=== PATIENT | male | born 1955 | race Caucasian/White ===

== ENCOUNTER 2017-09-20 12:51 | Emergency (ER) | payer SELFPAY ==
[2017-09-20] MEDS ORDERED: DIPH/PERTUSS(ACELL)/TETANUS VAC/PF 0.5 ML SYR (>=10YO) IM ONE (13:44)
--- NOTE | 2017-09-20 13:57 | ER Document Report ---
ED Extremity Problem, Lower - General Chief Complaint: Leg Pain Stated Complaint: LEG PAIN Time Seen by Provider: 09/20/17 13:37 Mode of Arrival: Ambulatory Information source: Patient TRAVEL OUTSIDE OF THE [place] IN LAST 30 DAYS: No - HPI Patient complains to provider of: Injury Location: Leg Notes: Patient is here with complaints of right upper mckeon pain. He states that he was stepping over a tall curb when his foot slipped and he banged the proximal aspect of his right tib-fib on the edge of the curb. This happened 1 week ago. He continues to have pain if he bears any weight. States that he has full range of motion of the knee and the ankle but when he bears weight he has pain to the proximal tib-fib. He is unsure when his last tetanus was. He denies any numbness, tingling, weakness. He denies any other injuries. No bleeding. No chest pain or shortness of breath. No nausea, vomiting, diarrhea. He denies any other complaints. Past Medical History - Social History Smoking Status: Former Smoker Chew tobacco use (# tins/day): No Frequency of alcohol use: None Drug Abuse: None Family History: Reviewed & Not Pertinent Patient has suicidal ideation: No Patient has homicidal ideation: No Renal/ Medical History: Denies: Hx Peritoneal Dialysis Review of Systems - Review of Systems -: Yes All other systems reviewed and negative Physical Exam - Vital signs Vitals: Temp Pulse Resp BP Pulse Ox 97.6 F 81 20 140/92 H 98 09/20/17 12:58 09/20/17 12:58 09/20/17 12:58 09/20/17 12:58 09/20/17 12:58 - Notes Notes: GENERAL: alert, cooperative, nontoxic, no distress. HEAD: normocephalic, atraumatic EYES: conjunctiva pink without discharge, no external redness or swelling. EARS: no external swelling, no external redness NOSE: atraumatic, no external swelling MOUTH/THROAT: mucous membranes moist and pink NECK: soft, supple, full range of motion, no meningismus. CHEST: no distress, lungs clear and equal throughout. No wheezing, rales, rhonchi. CARDIAC: regular rate and rhythm, no murmur, normal capillary refill, normal pulses. BACK: full range of motion, no CVA tenderness. EXTREMITIES: full range of motion of all extremities. No redness, no swelling. Tenderness to palpation of the right proximal tib-fib. There is a superficial scabbed abrasion. No surrounding redness. Full range of motion of the knee and the ankle. Compartments are soft. Normal pulse and sensation distally. NEURO: alert and oriented 3, no focal deficits, full range of motion of all extremities. PYSCH: appropriate mood, affect. Patient is cooperative. SKIN: pink, warm, dry, no rash. Course - Re-evaluation Re-evalutation: 09/20/17 15:16 Patient is nontoxic appearing stable vitals. He injured his right proximal tib- fib last week when he hit it on a curb. Continues to have pain with weightbearing. Is a superficial abrasion with no signs of infection. X-ray shows no acute fracture. Patient has crutches that he has been ambulating with and he was instructed he could continue to use these as needed. Patient will be discharged home with a prescription for tearing. Follow-up if not better in 1 week, sooner for worsening pain, fever, redness, numbness, tingling, weakness , any further concerns. The patient is noted to have elevated blood pressure during today's emergency department visit. The patient was informed of this finding. The patient was instructed that this may be related to pre-hypertension and requires further evaluation with a primary care provider. The patient has no hypertensive symptoms at this time. The patient's emergency department workup and current diagnosis were explained to the patient and or family. Follow-up instructions were provided. Medications if prescribed were discussed. Instructions for when to return to the emergency department including specific worrisome symptoms were discussed with the patient and/or family. - Vital Signs Vital signs: Temp Pulse Resp BP Pulse Ox 97.6 F 81 20 140/92 H 98 09/20/17 12:58 09/20/17 12:58 09/20/17 12:58 09/20/17 12:58 09/20/17 12:58 - Diagnostic Test Radiology reviewed: Image reviewed, Reports reviewed - Negative right knee Discharge - Discharge Clinical Impression: Contusion, lower leg Qualifiers: Encounter type: initial encounter Laterality: right Qualified Code(s): S80.11XA - Contusion of right lower leg, initial encounter Condition: Stable Disposition: HOME, SELF-CARE Instructions: Contusion ([facility]), Abrasions ([facility]) Additional Instructions: Take medication as prescribed. Ice to sore area. Follow-up if not better in 1 week, sooner for worsening pain, fever, redness, numbness, tingling, weakness, any further concerns. Your blood pressure was elevated during today's visit. Have this rechecked with your doctor. Prescriptions: Diclofenac Sodium [Voltaren 50 Mg Tablet.] 50 mg PO BID #20 tablet.dr Forms: Elevated Blood Pressure, Smoking Cessation Education Referrals: [facility] [Provider Group] - Follow up as needed
--- NOTE | 2017-09-20 15:03 | RADIOLOGY REPORT (SQ) ---
EXAM DESCRIPTION: KNEE RIGHT 4 VIEWS COMPLETED DATE/TIME: 09/20/2017 2:15 pm REASON FOR STUDY: injury, fall COMPARISON: None. NUMBER OF VIEWS: Four views. TECHNIQUE: AP, lateral, and both oblique radiographic images acquired of the right knee. LIMITATIONS: None. FINDINGS: MINERALIZATION: Normal. BONES: No acute fracture or dislocation. No worrisome bone lesions. JOINT: No effusion. SOFT TISSUES: No soft tissue swelling. No radio-opaque foreign body. OTHER: No other significant finding. IMPRESSION: NEGATIVE STUDY OF THE RIGHT KNEE. NO RADIOGRAPHIC EVIDENCE OF ACUTE INJURY. TECHNICAL DOCUMENTATION: JOB ID: [id number] [employer]- All Rights Reserved Reading location - IP/workstation name: [email or web address]
[2017-09-20 15:27] VITALS: BP 111/83
== END 2017-09-20 15:26 | disposition home or self-care (01) ==
LOC: ER 12:51
DX: S80.11XA Contusion of right lower leg, initial encounter (principal); M79.661 Pain in right lower leg; W22.09XA Striking against other stationary object, initial encounter; R03.0 Elevated blood-pressure reading, without diagnosis of hypertension; Z87.891 Personal history of nicotine dependence
CPT/HCPCS: 90471; 90715; 99283

== ENCOUNTER 2019-06-14 22:55 | Emergency (ER) | payer SELFPAY ==
[2019-06-14 23:31] LABS: ABSOLUTE BASOPHILS # (AUTO) 0.1 10^3/uL (0.0-0.2); ABSOLUTE EOSINOPHILS # (AUTO) 0.3 10^3/uL (0.0-0.6); ABSOLUTE LYMPHOCYTES (AUTO) 2.3 10^3/uL (0.5-4.7); ABSOLUTE MONOCYTES (AUTO) 1.2 10^3/uL (0.1-1.4); ABSOLUTE NEUT (AUTO) 6.3 10^3/uL (1.7-8.2); BASOPHILS % (AUTO) 0.7 % (0-2); EOSINOPHILS % (AUTO) 2.7 % (0-6); HEMATOCRIT 41.5 % (37.9-51.0); HEMOGLOBIN 14.4 g/dL (13.5-17.0); LYMPHOCYTES % (AUTO) 22.5 % (13-45); MEAN CORPUSCULAR HEMOGLOBIN 32.4 pg (27.0-33.4); MEAN CORPUSCULAR HGB CONC 34.8 g/dL (32.0-36.0); MEAN CORPUSCULAR VOLUME 93 fl (80-97); MONOCYTES % (AUTO) 11.7 % (3-13); PLATELET COUNT 229 10^3/uL (150-450); RED BLOOD COUNT 4.46 10^6/uL (4.35-5.55); RED CELL DISTRIBUTION WIDTH 13.7 % (11.5-14.0); SEGMENTED NEUTROPHILS % (AUTO) 62.4 % (42-78); TOTAL CELLS COUNTED % (AUTO) 100 %
[2019-06-14 23:44] LABS: ALBUMIN 3.8 g/dL (3.5-5.0); ALKALINE PHOSPHATASE 76 U/L (38-126); ANION GAP 8 (5-19); ASPARTATE AMINO TRANSFERASE 19 U/L (17-59); BILIRUBIN,DIRECT 0.2 mg/dL (0.0-0.4); BILIRUBIN,TOTAL 0.5 mg/dL (0.2-1.3); BLOOD UREA NITROGEN 23 mg/dL (7-20); CALCIUM 8.7 mg/dL (8.4-10.2); CARBON DIOXIDE 29 mmol/L (22-30); CHLORIDE 101 mmol/L (98-107); CREATINE KINASE 76 U/L (55-170); GLUCOSE 157 mg/dL (75-110); POTASSIUM 3.7 mmol/L (3.6-5.0); TOTAL PROTEIN 6.7 g/dL (6.3-8.2)
[2019-06-14] MEDS ORDERED: PREDNISONE 20 MG TABLET PO ONE (23:55)
[2019-06-14] MEDS ORDERED: DIPHENHYDRAMINE HCL 50 MG/ML VIAL IV ONE (23:55)
[2019-06-14 23:56] LABS: CREATINE KINASE MB 0.93 ng/mL (<4.55)
[2019-06-15 00:08] LABS: TROPONIN I 0.06 ng/mL
--- NOTE | 2019-06-15 00:21 | ER Document Report ---
ED General - General Chief Complaint: Chest Pain Stated Complaint: CHEST PAIN Time Seen by Provider: 06/14/19 23:28 Notes: 63-year-old male with no significant past medical history presents with sudden onset of chest pain that occurred at 8 PM while watching tv. Patient states it radiates down his right arm. Similar episode yesterday which lasted a few minutes. Denies any associated dyspnea. Patient states on the way in he did have nausea/vomiting with EMS. Patient received aspirin 324 mg, Zofran 4 mg, 3 sprays of nitro, and 500 cc normal saline with EMS. Patient states none of this improved his chest pain. Patient states it has started to ease off in the last 30 to 40 minutes since he has been in the ER. Patient denies any past medical history of hypertension, hyperlipidemia, diabetes. Patient states he was a smoker but has quit 20 years ago. Patient denies any family history of cardiac disease. Denies any ilicit drug use. Pt also has hives/itching on left hand that just started. TRAVEL OUTSIDE OF THE [place] IN LAST 30 DAYS: No - Related Data Allergies/Adverse Reactions: No Known Allergies Allergy (Unverified 06/15/19 00:11) Past Medical History - Social History Smoking Status: Former Smoker Chew tobacco use (# tins/day): No Frequency of alcohol use: None Drug Abuse: None Family History: Reviewed & Not Pertinent Patient has suicidal ideation: No Patient has homicidal ideation: No Renal/ Medical History: Denies: Hx Peritoneal Dialysis Review of Systems - Review of Systems Notes: Constitutional: Negative for fever. HENT: Negative for sore throat. Eyes: Negative for visual changes. Cardiovascular: Positive for chest pain. Respiratory: Negative for shortness of breath. Gastrointestinal: Positive for nausea/vomiting. Negative for abdominal pain or diarrhea. Genitourinary: Negative for dysuria. Musculoskeletal: Negative for back pain. Skin: Positive for rash. Neurological: Negative for headaches, weakness or numbness. 10 point ROS negative except as marked above and in HPI. Physical Exam - Vital signs Vitals: Resp Pulse Ox 13 100 06/14/19 23:23 06/14/19 23:23 - Notes Notes: GENERAL: Well-appearing, well-nourished and in no acute distress. HEAD: Atraumatic, normocephalic. EYES: Extraocular movements intact, sclera anicteric, conjunctiva are normal. NECK: Normal range of motion, supple without lymphadenopathy or JVD. LUNGS: Breath sounds clear to auscultation bilaterally and equal. No wheezes rales or rhonchi. HEART: Regular rate and rhythm without murmurs, rubs or gallops. EXTREMITIES: Normal range of motion, no pitting or edema. No clubbing or cyanosis. NEUROLOGICAL: Cranial nerves II through XII grossly intact. Normal speech, normal gait. PSYCH: Normal mood, normal affect. SKIN: Several small urticaria seen to left hand. Warm, Dry, normal turgor. Course - Re-evaluation Re-evalutation: 06/15/19 03:29 Troponin elevated. Spoke to Alisson at [facility]. Auto-accept at [facility]. Pt placed on waitlist and state hopefully discharges tomorrow and pt will be able to be transferred. Accepting physician is Dr. Lilly Husain. Due to urticaria, Benadryl and Prednisone were given. 06/15/19 03:36 Discussed diagnosis and need for transfer with pt. Pt voices understanding and agrees with plan of care. Pt continues to remain chest pain free. Instructed pt that if he starts to have chest pain he needs to let us know. 06/15/19 03:40 Metoprolol held due to HR and BP. 06/15/19 03:[address] Taj Nevarez at [facility] who requests demographics and EKG be sent and most likely will have to be added to wait list. 06/15/19 04:09 Dr. Nevarez called back and thinks that pt is having a STEMI. Chloe Nevarez states to have STEMI activated and add on Lipitor 80 mg. Discussed with attending, Dr. Butt, who also reviewed EKG and does not agree that it is a STEMI. Recommends repeating EKG. Ordered. 06/15/19 04:18 Repeat EKG does not show STEMI. 06/15/19 04:31 [place] states that when she called before faxing over 2nd EKG that she should call and activate a Code STEMI. [place] called STEMI line. Spoke to [employer] SAL[employer] AGENT at [facility] line who requests we talk to rn infusion safety professional at [facility], Dr. Murry, at [phone]. Page sent to Dr. Murry with call back number to [phone]. 06/15/19 04:[address] Murry who requested EKGs be texted to him at [phone]. States he will look at them and then call back. 06/15/19 04:[address] Murry who reviewed the EKGs. States that does not meet STEMI criteria. Recommends adding Plavix 600 mg, aspirin, heparin, atorvastatin. 06/15/19 04:57 [facility] called with bed assignment. Bed at [facility] cancelled. 06/15/19 05:[address] Butt. Cancelled Plavix. 06/15/19 05:58 Transport has arrived. Pt continues to remain chest pain free. Vitals stable. - Vital Signs Vital signs: Temp Pulse Resp BP Pulse Ox 98.3 F 72 20 114/62 97 06/15/19 05:45 06/14/19 23:25 06/15/19 05:45 06/15/19 05:45 06/15/19 05:45 - Laboratory Result Diagrams: 06/15/19 03:44 06/14/19 23:13 Laboratory results interpreted by me: 06/14/19 06/15/19 23:13 03:44 Lymph % (Auto) 11.1 L [place] % (Auto) 1.8 L Seg Neutrophils % 86.4 H BUN 23 H Glucose 157 H Discharge - Discharge Clinical Impression: NSTEMI (non-ST elevated myocardial infarction) Condition: Stable Disposition: [facility]
--- NOTE | 2019-06-15 01:35 | RADIOLOGY REPORT (SQ) ---
EXAM DESCRIPTION: XR CHEST 2 VIEWS COMPLETED DATE/TME: 06/14/2019 00:00 CLINICAL HISTORY: 63 years Male, chest pain COMPARISON: None. NUMBER OF VIEWS/TECHNIQUE: 2, Frontal, Lateral FINDINGS: Small streaky pleural-based opacity at the left lung base may indicate atelectasis, scar, or pneumonia. Increased lung volume, normal cardiac silhouette, and intact bony thorax. IMPRESSION: Small streaky pleural-based opacity at the left lung base may indicate atelectasis, scar, or pneumonia. Recommend comparison with prior exams or CR/CT surveillance including at 7-12 weeks following initiation of any clinically warranted therapy.
[2019-06-15] MEDS ORDERED: HEPARIN SODIUM,PORCINE/D5W 25,000 UNIT/250 ML RTUINJ IV PRN (03:23)
[2019-06-15] MEDS ORDERED: METOPROLOL TARTRATE PF/INJ 5 MG/5 ML SDV IV ONE (03:23)
[2019-06-15] MEDS ORDERED: HEPARIN SOD (PORCINE) 1,000 UNIT/ML 10 ML VIAL IV ONE (03:23)
[2019-06-15 04:00] LABS: ABSOLUTE LYMPHOCYTES (AUTO) 0.9 10^3/uL (0.5-4.7); ABSOLUTE MONOCYTES (AUTO) 0.2 10^3/uL (0.1-1.4); ABSOLUTE NEUT (AUTO) 7.3 10^3/uL (1.7-8.2); BASOPHILS % (AUTO) 0.5 % (0-2); EOSINOPHILS % (AUTO) 0.2 % (0-6); HEMATOCRIT 44.4 % (37.9-51.0); HEMOGLOBIN 15.3 g/dL (13.5-17.0); LYMPHOCYTES % (AUTO) 11.1 % (13-45); MEAN CORPUSCULAR HEMOGLOBIN 31.9 pg (27.0-33.4); MEAN CORPUSCULAR HGB CONC 34.3 g/dL (32.0-36.0); MEAN CORPUSCULAR VOLUME 93 fl (80-97); MONOCYTES % (AUTO) 1.8 % (3-13); PLATELET COUNT 225 10^3/uL (150-450); RED BLOOD COUNT 4.78 10^6/uL (4.35-5.55); RED CELL DISTRIBUTION WIDTH 13.4 % (11.5-14.0); SEGMENTED NEUTROPHILS % (AUTO) 86.4 % (42-78); TOTAL CELLS COUNTED % (AUTO) 100 %; WHITE BLOOD COUNT 8.5 10^3/uL (4.0-10.5)
[2019-06-15 04:05] LABS: PROTHROMBIN TIME 13.2 SEC (11.4-15.4)
[2019-06-15] MEDS ORDERED: ATORVASTATIN CALCIUM 80 MG TABLET PO ONE (04:08)
[2019-06-15] MEDS ORDERED: CLOPIDOGREL BISULFATE 300 MG TABLET PO ONE (04:54)
[2019-06-15 06:03] LABS: APPEARANCE,URINE CLEAR; BILIRUBIN,URINE NEGATIVE (NEGATIVE); COLOR,URINE STRAW; GLUCOSE, URINE NEGATIVE (NEGATIVE); KETONES,URINE NEGATIVE (NEGATIVE); LEUKOCYTE ESTERASE,URINE NEGATIVE (NEGATIVE); NITRITE,URINE NEGATIVE (NEGATIVE); PROTEIN,URINE NEGATIVE (NEGATIVE); URINE SPECIFIC GRAVITY 1.008; UROBILINOGEN,URINE NEGATIVE mg/dL (<2.0)
--- NOTE | 2019-06-15 06:12 | ER Document Report ---
Doctor's Note Notes: 06/15/19 06:11 dant is here for transfer. Pt is pain free here and has been accepted at [facility]. Pt seen nontoxic and comfortable.
[2019-06-15] MEDS ORDERED: HEPARIN SOD (PORCINE) 1,000 UNIT/ML 10 ML VIAL IV PRN (06:23)
[2019-06-15 06:29] VITALS: BP 119/82
--- NOTE | 2019-06-15 09:20 | EKG REPORT ---
SEVERITY:- ABNORMAL ECG - SINUS RHYTHM CONSIDER ANTEROSEPTAL INFARCT : Confirmed by: Nicolas Chamorro 15-Jun-2019 09:17:40
--- NOTE | 2019-06-16 13:03 | EKG REPORT ---
SEVERITY:- ABNORMAL ECG - SINUS RHYTHM NONSPECIFIC T ABNORMALITIES, ANT-LAT LEADS : Confirmed by: Nicolas Chamorro 16-Jun-2019 13:02:12
== END 2019-06-15 06:28 | disposition short-term general hospital (02) ==
LOC: ER 22:55
DX: I21.4 Non-ST elevation (NSTEMI) myocardial infarction (principal); R07.9 Chest pain, unspecified; M79.601 Pain in right arm; R11.2 Nausea with vomiting, unspecified; L50.9 Urticaria, unspecified; L29.9 Pruritus, unspecified; Z87.891 Personal history of nicotine dependence
CPT/HCPCS: 93005 ×2; 96376; 99285; 96375; 96365; 36415; 82553; 82550; 85025; 85610; 85730; 80053; 81001; 84484; 71046; 93010 ×2; J1644 ×2; J1200; J7512